=== PATIENT | female | born 1970 | race Two or more races ===

== ENCOUNTER 2017-08-11 01:27 | Emergency (ER) | payer MEDICAID ==
[~2017-08-11] VITALS: Ht 154.9 cm; Wt 63.5 kg
[2017-08-11 02:39] LABS: Urine Bilirubin Negative (Negative); Urine Blood 3+ /uL (Negative); Urine Color Yellow (Yellow); Urine Glucose Normal (Normal); Urine Ketone Negative (Negative); Urine Mucus FEW (None Seen); Urine Nitrite Negative (Negative); Urine RBC 8 /hpf (0 - 4); Urine Squamous Epithelial Cell FEW /hpf (<5)
[2017-08-11 03:04] LABS: Basophils # (auto) 0.1 uL; Eosinophils # (auto) 0.2 uL; Eosinophils % (auto) 2.9 % (0.0-7.0); Hematocrit 37.7 % (36.0-46.0); Hemoglobin 12.5 g/dL (12.2-16.2); Lymphocytes # (auto) 1.7 uL; Lymphocytes % (auto) 23.2 % (10.0-50.0); Mean Corpuscular Hemoglobin 29.7 pg (28.0-32.0); Mean Corpuscular Hgb Conc. 33.2 g/dL (32.0-36.0); Mean Corpuscular Volume 89.4 fL (80.0-100.0); Mean Platelet Volume 7.7 fL (6.9-10.8); Monocytes # (auto) 0.8 uL; Monocytes % (auto) 10.3 % (0.0-12.0); Neutrophils # (auto) 4.6 uL; Neutrophils % (auto) 62.6 % (37.0-80.0); Nucleated Red Blood Cells % 0.1 %; Platelet Count (auto) 404 10^3/uL (140-450); Red Cell Distribution Width 16.8 % (11.8-14.3); White Blood Cell 7.4 10^3/uL (4.4-10.8)
[2017-08-11 03:24] LABS: Albumin 3.8 g/dL (3.4-5.0); BUN/Creatinine Ratio 30.5; Calcium 8.2 mg/dL (8.5-10.1); Potassium 3.5 mmol/L (3.5-5.1)
[2017-08-11 03:27] LABS: Bilirubin, Total 0.9 mg/dL (0.2-1.0); Total Protein 7.5 g/dL (6.4-8.2)
[2017-08-11] MEDS ORDERED: NITROFURANTOIN (MONO) 100 mg CAP PO ONE (08:45)
[2017-08-11] MEDS ORDERED: cefTRIAXone W LIDOCAINE 1 GM IM IM ONE (09:00)
[2017-08-11] MEDS ORDERED: cefTRIAXone SOD 1,000 MG VL ONE ×2 (09:41→09:47)
[2017-08-11] MEDS ORDERED: LIDOCAINE 2%HCL (LOCAL ANESTH.) INJ 20ML MDV ONE (09:48)
[2017-08-11 09:58] VITALS: BP 102/63
== END 2017-08-11 10:29 | disposition home or self-care (01) ==
LOC: ER 01:31
DX: N39.0 Urinary tract infection, site not specified (principal); F15.90 Other stimulant use, unspecified, uncomplicated; Z59.0 Homelessness; Y08.89XA Assault by other specified means, initial encounter; Y93.89 Activity, other specified; Y99.8 Other external cause status; Y92.89 Other specified places as the place of occurrence of the external cause
CPT/HCPCS: 36415; 80053; 80307; 81001; 85025; 86644; 86645; 96372; 99284; J0696